=== PATIENT | male | born 1960 | race Caucasian/White ===

== ENCOUNTER 2019-06-14 18:06 | Emergency (ER) | payer MEDICARE ==
--- NOTE | 2019-06-14 21:22 | ED ---
Skin Complaint - HPI Summary HPI Summary: 58-year-old male presents with complaints of a full body rash for approximately 3 weeks. Patient states that he was started on Mavyret for treatment of chronic hepatitis C the day before the onset of the rash. Report rash is itchy. States he initially thought he may have gotten into some poison aminah or poison oak however the rash has persisted and he states tends to worsen after taking the medication. Has tried using Calmine lotion without relief. Denies swelling of the lips, tongue, throat, dysphagia, difficulty breathing, changes in soaps, detergents, or any known contact with environmental irritants. - History of Current Complaint Chief Complaint: EDRashSkinAbscess Time Seen by Provider: 06/14/19 21:07 Stated Complaint: HIVES REACTION TO MEDICATION PER PT Hx Obtained From: Patient Pain Intensity: 0 - Additional Pertinent History Primary Care Physician: MIRANDA - Allergy/Home Medications Allergies/Adverse Reactions: Allergies Allergy/AdvReac Type Severity Reaction Status Date / Time No Known Allergies Allergy Verified 06/14/19 18:20 Home Medications: Home Medications Glecaprevir/Pibrentasvir [Mavyret 100-40 mg Tablet] 3 each PO DAILY WITH MEAL [History Confirmed 06/14/19] PMH/Surg Hx/FS Hx/Imm Hx Cardiovascular History: Denies: Hx Pacemaker/ICD GI History: Reports: Other GI Disorders - Hep C Sensory History: Reports: Hx Contacts or Glasses Denies: Hx Legally Blind, Hx Deafness, Hx Hearing Aid Opthamlomology History: Reports: Hx Contacts or Glasses Denies: Hx Legally Blind Neurological History: Reports: Hx Transient Ischemic Attacks (TIA) Psychiatric History: Denies: Hx Panic Disorder - Cancer History Cancer Type, Location and Year: Adrenal - Surgical History Surgery Procedure, Year, and Place: CSP FUSION;. HERNIA REPAIR Infectious Disease History: No Infectious Disease History: Denies: Traveled Outside the [place] in Last 30 Days - Family History Known Family History: Positive: Cardiac Disease - [place] - Social History Occupation: Disabled Lives: With Family Alcohol Use: None Alcohol Amount: pt says "I don't drink anymore" Substance Use Type: Reports: None Smoking Status (MU): Heavy Every Day Tobacco Smoker Type: Cigarettes Review of Systems Constitutional: Negative Eyes: Negative ENT: Negative Cardiovascular: Negative Negative: Shortness Of Breath, Cough Gastrointestinal: Negative Genitourinary: Negative Musculoskeletal: Negative Positive: Rash Neurological: Negative All Other Systems Reviewed And Are Negative: Yes Physical Exam - Summary Physical Exam Summary: GENERAL APPEARANCE: Well developed, well nourished, alert and cooperative, and appears to be in no acute distress. MOUTH/THROAT: No swelling of the lips, tongue, or throat. Pharynx normal. No tonsilar inflammation, swelling, exudate, or lesions. Uvula midline. Airway patent. CARDIAC: Normal S1 and S2. No S3, S4 or murmurs. Rhythm is regular. There is no peripheral edema, cyanosis or pallor. Extremities are warm and well perfused. Capillary refill is less than 2 seconds. Peripheral pulses intact. LUNGS: Clear to auscultation without rales, rhonchi, wheezing or diminished breath sounds. ABDOMEN: Positive bowel sounds. Soft, nondistended, nontender. No guarding or rebound. No masses or hepatosplenomegally. MUSKULOSKELETAL: ROM intact to all extremities. No joint erythema or tenderness. Normal muscular development. Normal gait. SKIN: Diffuse pruritic maculopapular rash to the neck, bilateral arms, anterior and posterior trunk, bilateral lower legs. Triage Information Reviewed: Yes Vital Signs On Initial Exam: Initial Vitals Temp Pulse Resp BP Pulse Ox 98.8 F 81 16 169/108 96 06/14/19 18:16 06/14/19 18:16 06/14/19 18:16 06/14/19 18:16 06/14/19 18:16 Vital Signs Reviewed: Yes Diagnostics - Vital Signs Vital Signs Temp Pulse Resp BP Pulse Ox 06/14/19 18:16 98.8 F 81 16 169/108 96 - Laboratory Lab Statement: Any lab studies that have been ordered have been reviewed, and results considered in the medical decision making process. Course/Dx - Course Course Of Treatment: 58-year-old male presents with complaints of a full body rash for approximately 3 weeks. Patient states that he was started on Mavyret for treatment of chronic hepatitis C the day before the onset of the rash. Report rash is itchy. States he initially thought he may have gotten into some poison aminah or poison oak however the rash has persisted and he states tends to worsen after taking the medication. Has tried using Calmine lotion without relief. Denies swelling of the lips, tongue, throat, dysphagia, difficulty breathing, changes in soaps, detergents, or any known contact with environmental irritants. Afebrile. Hypertensive otherwise vital signs stable. Patient had diffuse pruritic maculopapular rash to the neck, bilateral arms, anterior and posterior trunk, bilateral lower legs and otherwise unremarkable exam. Discussed with the patient that I am concerned that this is very likely a drug reaction. I have recommended that he stop the Mavyret at this time. He is to contact his test carrier tomorrow to let them know about the potential drug reaction and to get their recommendations on further treatment for his hepatitis C. I will start him on prednisone 40 mg daily for 5 days to help with the rash. He was given the first dose in the emergency room. I also recommended using [id number] diphenhydramine according to directions as needed for any itching. Anticipatory guidance and warning symptoms were reviewed with the patient. Verbalizes understanding and agrees with plan of care. - Differential Diagnoses - Skin Complaint Differential Diagnoses: Allergic Reaction, Contact Dermatitis, Drug Rash, Poison Aminah, Poison [place], Urticaria - Diagnoses Provider Diagnoses: Rash of entire body Discharge - Sign-Out/Discharge Documenting (check all that apply): Patient Departure Patient Received Moderate/Deep Sedation with Procedure: No - Discharge Plan Condition: Stable Disposition: HOME Prescriptions: predniSONE TAB* [Deltasone 20 MG TAB*] 40 mg PO DAILY 4 Days #8 tab Patient Education Materials: Acute Rash (ED) Referrals: Asha MANN,Feliciano Winn [Primary Care Provider] - Additional Instructions: With her history of the rash starting after beginning your Mavyret and persisting while taking I suspect that you may be having a reaction to the medication. I would recommend that you stop taking the medication at this time and contact gastroenterology to discuss whether they would like you to stop or continue the medication. We gave you a dose of prednisone 40 mg in the emergency room to help with the rash. Continue taking prednisone 40 mg once daily for the next 4 days starting tomorrow. You make take [id number] Benadryl as needed for itching. Return to the emergency room if you haven't any swelling of the lips, tongue, throat, inability to swallow, difficulty breathing, or any worsening of symptoms. - Billing Disposition and Condition Condition: STABLE Disposition: Home
[2019-06-14] MEDS ORDERED: predniSONE TAB* 20 MG PO ONE (21:33)
[2019-06-14 21:53] VITALS: BP 174/101
== END 2019-06-14 21:54 | disposition home or self-care (01) ==
LOC: ED 18:06
DX: R21 Rash and other nonspecific skin eruption (principal); F17.210 Nicotine dependence, cigarettes, uncomplicated
CPT/HCPCS: 99282; J7512

== ENCOUNTER 2020-02-25 21:01 | Emergency (ER) | payer MEDICARE ==
[2020-02-25 21:57] LABS: ABS Basophils 0.1 10^3/ul (0-0.2); ABS Eosinophils 0.2 10^3/ul (0-0.6); ABS Lymphocytes 2.2 10^3/ul (1.0-4.8); Hematocrit 44 % (42-52); Hemoglobin 15.6 g/dL (14.0-18.0); Lymphocyte % 21.5 %; Mean Corpuscular HGB Conc 35 g/dL (31-36); Mean Corpuscular Hemoglobin 33 pg (27-31); Mean Corpuscular Volume 94 fL (80-94); Mean Platelet Volume 8.7 fL (7.4-10.4); Nucleated Red Blood Cells % 0.1; Platelet Count 334 10^3/uL (150-450); Red Blood Count 4.72 10^6 /uL (4.18-5.48); Red Cell Distribution Width 13 % (10-15)
[2020-02-25 22:05] LABS: Activated Partial Thrombo Time 37.2 seconds (26.0-38.0); INR 0.95 (0.82-1.09)
[2020-02-25] MEDS ORDERED: NS 0.9% 1000 ml BAG 1,000 ML IV ONE (22:07)
[2020-02-25 22:14] LABS: Albumin/Globulin Ratio 1.2 (1-3); BUN/Creatinine Ratio 8.4 (8-20); EGFR African American 114.4 (>60); EGFR Non-African American 94.5 (>60); Globulin 3.4 g/dL (2-4); Potassium 3.8 mmol/L (3.5-5.0); Total Bilirubin 0.5 mg/dL (0.2-1.0); Total Protein 7.4 g/dL (6.4-8.9)
[2020-02-25] MEDS ORDERED: Iohexol 300 (CONTRAST) 10 ML SDV IV ONE (23:03)
[2020-02-26 00:24] VITALS: BP 142/84
== END 2020-02-26 00:10 | disposition home or self-care (01) ==
LOC: ED 21:01

== ENCOUNTER 2024-02-28 09:45 | Inpatient (IN) ==
[2024-02-28] MEDS: Lactated Ringers 1000 ml BAG 1,000 ML IV ONE (10:10)
[2024-02-28 10:23] LABS: ABS Lymphocytes 0.8 10^3/uL (1.0-4.8); ABS Monocytes 0.6 10^3/uL (0.0-1.1); ABS Neutrophils 7.2 10^3/uL (1.5-7.6); Eosinophil % 0.1 %; Hematocrit 47.4 % (38-53); Hemoglobin 16.5 g/dL (13.2-16.3); Lymphocyte % 8.8 %; Mean Corpuscular Hemoglobin 33.5 pg (27-33); Mean Corpuscular Hgb Conc 34.7 g/dL (31-36); Mean Corpuscular Volume 96.4 fL (80-97); Mean Platelet Volume 8.7 fL (7.5-11.2); Platelet Count 280 10^3/uL (150-450); Red Blood Count 4.92 10^6/uL (4.06-5.63); Red Cell Distribution Width 13.5 % (12-17); White Blood Count 8.6 10^3/uL (3.6-10.2)
[2024-02-28 10:33] LABS: PCO2 Arterial 45 mmHg (35-45); PO2 Arterial 153 mmHg (80-100)
[2024-02-28] MEDS ORDERED: LORazepam 2 mg VIAL 1 ml ONE (10:38)
[2024-02-28] MEDS: Atropine 0.1 MG/ML 10 ml SYR (1 mg) IV PUSH ONE (10:38)
[2024-02-28 10:43] LABS: ALT 18 U/L (7-52); AST 19 U/L (13-39); Albumin 4.4 g/dL (3.2-5.2); Albumin/Globulin Ratio 1.4 (1-3); Alkaline Phosphatase 82 U/L (35-149); Anion Gap 9 mmol/L (2-16); Blood Urea Nitrogen 13 mg/dL (6-24); C Reactive Protein < 1.00 mg/L (<8.01); CO2 Carbon Dioxide 27 mmol/L (22-32); Calcium 8.8 mg/dL (8.6-10.3); Chloride 96 mmol/L (101-111); Creatinine, Serum 0.76 mg/dL (0.67-1.17); Globulin 3.2 g/dL (2-4); Glucose 123 mg/dL (70-100); INR 0.98 (0.83-1.13); Lipase 27 U/L (11.0-82.0); Magnesium 1.9 mg/dL (1.9-2.7); Phosphorus 3.6 mg/dL (2.5-5.0); Potassium 4.5 mmol/L (3.5-5.0); Sodium 132 mmol/L (135-145); Total Bilirubin 0.8 mg/dL (0.2-1.0); Total Protein 7.6 g/dL (6.4-8.9); eGFR CKD-EPI 100.4 (>60)
[2024-02-28 10:48] LABS: High Sens Troponin Baseline 4 pg/mL (<20)
[2024-02-28] MEDS: LORazepam 2 mg VIAL 1 ml IV PUSH ONE (10:50)
[2024-02-28 11:11] LABS: T4, Total 7.63 mcg/dL (6.09-12.23)
[2024-02-28 11:15] LABS: TSH Ultra Thyroid Stim Horm 3.69 mcIU/mL (0.34-5.60)
[2024-02-28] MEDS: Iohexol 350 (CONTRAST) 500 ML MDV IV ONE (11:19)
[2024-02-28] MEDS: Thiamine 100 MG/ML 2 ml VIAL 100 MG, Folic Acid IV 1 MG, Multiple Vitamin IV ADULT 10 M... IV ONE (11:35)
[2024-02-28] MEDS ORDERED: Atropine 1 MG/ML INJ 1 ML VIAL IV PUSH PRN (12:06)
[2024-02-28 12:11] LABS: High Sensitivity Troponin 1 Hr 5 pg/mL (<20)
[2024-02-28] MEDS ORDERED: Sulfur Hexaflouride MICROSPHR 25 MG VIAL ONE (12:16)
[2024-02-28] MEDS ORDERED: Lidocaine 1% VIAL 10 MG/ML 30 ML VIAL ONE (13:33)
[2024-02-28] MEDS ORDERED: Lidocaine 1% w EPI 1:100,000 MDV 20 ML VIAL ONE (13:33)
[2024-02-28] MEDS ORDERED: Iohexol 300 (CONTRAST) 10 ML SDV ONE (13:34)
[2024-02-28] MEDS: ceFAZolin 2 GM in NS PREMIX 2 GM/100 ML BAG IVPB ONE (14:08)
[2024-02-28] MEDS: NS 0.9% 1000 ml BAG 1,000 ML IV SCH (14:13)
[2024-02-28] MEDS ORDERED: Midazolam 2 mg/2 ml VIAL 1 mg/ml 2 ml VIAL (2 mg) ONE ×2 (14:22→15:20)
[2024-02-28] MEDS ORDERED: Propofol 10 MG/ML 20 ML BTL ONE (14:22)
[2024-02-28] MEDS ORDERED: Glycopyrrolate IV 0.2 MG/ML 1 ML VIAL ONE (14:23)
[2024-02-28] MEDS ORDERED: Propofol 10 mg/ml 100 ML BTL 1,000 MG/100 ML BTL ONE ×2 (14:24)
[2024-02-28] MEDS ORDERED: fentaNYL 100 mcg/2 ml 50 MCG/ML VIAL IV PRN (14:24)
[2024-02-28] MEDS ORDERED: Naloxone 0.4 mg VIAL 0.4 mg/ml 1 ml VIAL IV PRN (14:24)
[2024-02-28] MEDS ORDERED: Ondansetron 4 mg VIAL 2 MG/ML 2 ml VIAL IV PRN (14:24)
[2024-02-28] MEDS ORDERED: DOXYcycline 100 MG in NS 0.9% 250 ml 250 ML IVPB SCH (16:00)
[2024-02-28] MEDS ORDERED: fentaNYL 100 mcg/2 ml 50 MCG/ML VIAL ONE (16:17)
[2024-02-28] MEDS: cefTRIAXone 2 gm/50 mL D5W 2 GM/50 ML BAG IV SCH (17:48)
[2024-02-28] MEDS: Nicotine PATCH 21 MG/24 HR PATCH TRANSDERM SCH (18:48)
[2024-02-28] MEDS: Enoxaparin 40 MG/0.4 ML SYR SUBCUT SCH (18:48)
[2024-02-28] MEDS: ceFAZolin 2 GM/50 ML BAG IV ONE (18:48)
[2024-02-28] MEDS: ceFAZolin VIAL 1 GM in NS 0.9% 50 ML 50 ML IVPB SCH ×2 (20:52→22:11)
[2024-02-28 21:48] LABS: Urine Appearance Clear; Urine Bilirubin Negative (Negative); Urine Blood Negative (Negative); Urine Color Light-Yellow; Urine Glucose Trace (Negative); Urine Ketones Negative (Negative); Urine Nitrite Negative (Negative); Urine Protein Negative (Negative); Urine Specific Gravity 1.018 (1.002-1.030); Urine Urobilinogen Negative (Negative)
[2024-02-29 04:09] LABS: ABS Lymphocytes 1.2 10^3/uL (1.0-4.8); ABS Neutrophils 8.4 10^3/uL (1.5-7.6); Eosinophil % 0.3 %; Hematocrit 41.5 % (38-53); Hemoglobin 14.2 g/dL (13.2-16.3); Lymphocyte % 11.5 %; Mean Corpuscular Hemoglobin 33.1 pg (27-33); Mean Corpuscular Hgb Conc 34.3 g/dL (31-36); Mean Corpuscular Volume 96.3 fL (80-97); Mean Platelet Volume 8.5 fL (7.5-11.2); Platelet Count 277 10^3/uL (150-450); Red Blood Count 4.31 10^6/uL (4.06-5.63); Red Cell Distribution Width 13.5 % (12-17); White Blood Count 10.7 10^3/uL (3.6-10.2)
[2024-02-29 04:38] LABS: Calcium 7.9 mg/dL (8.6-10.3); Creatinine, Serum 0.64 mg/dL (0.67-1.17); Magnesium 1.7 mg/dL (1.9-2.7); Potassium 3.9 mmol/L (3.5-5.0); eGFR CKD-EPI 105.7 (>60)
[2024-02-29] MEDS: Magnesium Sulfate 2 gm BAG 2 GM/50 ML BAG IVPB ONE (05:33)
[2024-02-29] MEDS: Multivitamins/Minerals TAB PO SCH (09:12)
[2024-02-29] MEDS: Benzocaine/Menthol LOZ PO PRN (23:07)
[2024-03-01 06:41] LABS: ABS Eosinophils 0.1 10^3/uL (0.0-0.5); ABS Lymphocytes 1.4 10^3/uL (1.0-4.8); ABS Monocytes 1.2 10^3/uL (0.0-1.1); ABS Neutrophils 6.4 10^3/uL (1.5-7.6); ABS Nucleated RBC 0.01 10^3/ul; Eosinophil % 1.6 %; Hematocrit 41.1 % (38-53); Hemoglobin 14.5 g/dL (13.2-16.3); Mean Corpuscular Hemoglobin 33.8 pg (27-33); Mean Corpuscular Hgb Conc 35.1 g/dL (31-36); Mean Corpuscular Volume 96.4 fL (80-97); Mean Platelet Volume 8.8 fL (7.5-11.2); Nucleated Red Blood Cells % 0.1 %/100WBC (0.0-0.8); Platelet Count 222 10^3/uL (150-450); Red Blood Count 4.27 10^6/uL (4.06-5.63); Red Cell Distribution Width 13.5 % (12-17); White Blood Count 9.1 10^3/uL (3.6-10.2)
[2024-03-01 06:58] LABS: Calcium 8.6 mg/dL (8.6-10.3); Creatinine, Serum 0.67 mg/dL (0.67-1.17); Magnesium 1.9 mg/dL (1.9-2.7); Potassium 3.9 mmol/L (3.5-5.0); eGFR CKD-EPI 104.3 (>60)
[2024-03-01] MEDS: fentaNYL 100 mcg/2 ml 50 MCG/ML VIAL IV SLOW PU ONE ×3 (12:34→12:37)
[2024-03-01] MEDS: Morphine 2 MG/ML SYRINGE IV ONE (15:11)
[2024-03-01 19:53] LABS: Folate 15.43 ng/mL (5.90-24.80)
[2024-03-02 09:47] VITALS: BP 143/86
[2024-03-03 15:40] LABS: IgG Immunoblot Positive (Negative); IgM Immunoblot Positive (Negative)
[2024-03-04 18:32] LABS: Amphetamines Screen Blood None Detected; Cannabinoids Screen Blood None Detected; Cocaine Metabolites Screen Bl None Detected; Fentanyl/Acetyl FentanylScreen None Detected; Methadone Metabolites Scrn Bl None Detected; Methamphetamines/MDMA Screen None Detected; Opiates Screen Blood None Detected; Oxycodone/Oxymorphone Scrn Bl None Detected; Phencyclidine Screen Blood None Detected
== END 2024-03-02 13:15 | disposition home or self-care (01) | DRG 242 ==
LOC: ED 09:45 → EDHOLD 11:15 → SUATTDRO 11:15 → ICU 11:41 → MEDTELE 11:54
PROVIDERS: ADMIT Student in an Organized Health Care Education/Training Program; ATTEND Student in an Organized Health Care Education/Training Program